=== PATIENT | male | born 1985 | race Caucasian/White ===

== ENCOUNTER 2020-08-07 01:21 | Emergency (ER) | payer OTHER ==
[2020-08-07 01:40] LABS: BASOPHIL 0.1 % (0-2); EOSINOPHIL 0.2 % (0-5); HCT 45.7 % (42.0-52.0); LYMPHOCYTE 5.4 % (15-48); MCH 32.9 pg (25.0-31.0); MCV 93.8 fL (78.0-100.0); MONOCYTE 6.3 % (0-12); MPV 10.4 fL (6.0-9.5); NEUTROPHIL 87.6 % (41-80); NRBC 0; PLT 217 K/uL (150-400); RBC 4.87 M/uL (4.70-6.00); RDW 12.2 % (11.5-14.0); WBC 10.8 K/uL (4.0-10.5)
[2020-08-07 01:58] LABS: ALBUMIN 4.1 g/dL (3.4-5.0); BILIRUBIN - TOTAL 0.6 mg/dL (0.2-1.0); BUN/CREAT RATIO (CALC) 12.4 RATIO; CREATININE 1.05 mg/dL (0.67-1.17); GLOBULIN (CALCULATION) 2.8 g/dL; POTASSIUM 3.6 mmol/L (3.5-5.1); TOTAL PROTEIN 6.9 g/dL (6.4-8.2)
[2020-08-07 02:05] LABS: LACTIC ACID 1.3 mmol/L (0.4-1.9)
[2020-08-07] MEDS ORDERED: PERCOCET 5-3251 EACH PO (04:43)
[2020-08-07] MEDS ORDERED: BENTYL10 MG PO (04:43)
[2020-08-07] MEDS ORDERED: LEVAQUIN750 MG PO (04:46)
[2020-08-07] MEDS ORDERED: METRONIDAZOLE500 MG PO (04:46)
== END 2020-08-07 04:58 | disposition home or self-care (01) ==
LOC: FER 01:21
PROVIDERS: Emergency Medicine Emergency Medical Services
DX: R10.31 Right lower quadrant pain (principal); R10.32 Left lower quadrant pain; K57.30 Diverticulosis of large intestine without perforation or abscess without bleeding; F17.200 Nicotine dependence, unspecified, uncomplicated; Z98.890 Other specified postprocedural states; Z87.19 Personal history of other diseases of the digestive system; Z90.49 Acquired absence of other specified parts of digestive tract
CPT/HCPCS: 36415; 80053; 83605; 84145; 85025; 96372; J0500; J1170; J1885; J2270; J2405; J3010; J7030; Q9967